=== PATIENT | female | born 1970 | race Caucasian/White ===

== ENCOUNTER 2019-12-05 09:08 | Emergency (ER) | payer OTHER ==
--- NOTE | 2019-12-05 09:26 | EDM.PDOC ---
ED HPI GENERAL MEDICAL PROBLEM - General Chief Complaint: Laceration Stated Complaint: HEAD LAC Time Seen by Provider: 12/05/19 09:25 - History of Present Illness INITIAL COMMENTS - FREE TEXT/NARRATIVE: 49-year-old female presents the emergency room with a laceration on her left forehead. This occurred roughly an hour ago. The patient was assisting her who was lowering their pickup camper. He was using a power drill to actuate the leveling jacks on a pull behind camper. As it was lowering the the battery pack on the drill struck her on the forehead. She had no loss of consciousness she felt a little dizzy for a few minutes afterwards but everything resolved without difficulty. She does not have a headache. She is uncertain as to when her last tetanus shot was. ED ROS GENERAL - Review of Systems Review Of Systems: See Below Constitutional: Reports: No Symptoms HEENT: Reports: No Symptoms Respiratory: Reports: No Symptoms Cardiovascular: Reports: No Symptoms GI/Abdominal: Reports: No Symptoms Neurological: Reports: No Symptoms ED EXAM, SKIN/RASH Exam: See Below Exam Limited By: No Limitations General Appearance: Alert, No Apparent Distress Eye Exam: Bilateral Eye: Normal Inspection, PERRL Ears: Normal External Exam, Normal Canal, Hearing Grossly Normal, Normal TMs Nose: Normal Inspection, Normal Mucosa, No Blood Throat/Mouth: Normal Inspection, Normal Lips, Normal Teeth, Normal Gums, Normal Oropharynx, Normal Voice, No Airway Compromise Head: Normocephalic, Other (Is atraumatic other than the 1 cm laceration in the left forehead) Neck: Normal Inspection, Supple, Non-Tender, Full Range of Motion. No: Lymphadenopathy (L), Lymphadenopathy (R), Tender Lateral, Tender Midline, Thyromegaly Respiratory/Chest: No Respiratory Distress, Lungs Clear, Normal Breath Sounds Cardiovascular: Regular Rate, Rhythm, No Edema, No Murmur ED SKIN PROCEDURES - Laceration/Wound Repair Left Face Appearance: Subcutaneous Anesthetic Type: Local Local Anesthesia - Lidocaine (Xylocaine): 1% with EPI Local Anesthetic Volume: 1cc Skin Prep: Saline Exploration/Debridement/Repair: Wound Explored, In a Bloodless Field, Explored to Base Closed with: Sutures Lac/Wound length In cm: 1 Suture Size: 4-0 # of Sutures: 3 Suture Type: Nylon Tetanus Status Addressed: Yes Complications: No Progress/Comments: The patient has a small left upper forehead laceration just below the hairline measures roughly 1 cm. Anesthesia was achieved with 1 cc of 1% lidocaine with epinephrine. The patient demonstrated adequate anesthesia 3 simple sutures were placed yielding good wound approximation. No complications. Course - Vital Signs Last Recorded V/S: Last Vital Signs Temp 36.5 C 12/05/19 09:19 Pulse 56 L 12/05/19 09:19 Resp 16 12/05/19 09:19 BP 132/89 12/05/19 09:19 Pulse Ox 100 12/05/19 09:19 - Orders/Labs/Meds Orders: Active Orders 24 hr Category Date Time Status Vaccines to be Administered [RC] PER UNIT ROUTINE Care 12/05/19 09:33 Ordered Meds: Medications Discontinued Medications Generic Name Dose Route Start Last Admin Trade Name Haroldo PRN Reason Stop Dose Admin Diphtheria/Tetanus/Acell Pertussis 0.5 ml 12/05/19 09:32 12/05/19 09:41 Adacel IM 12/05/19 09:33 0.5 ml .ONCE ONE Administration Lidocaine/Epinephrine 10 ml 12/05/19 09:32 12/05/19 09:48 Xylocaine 1% With Epinephrine 1:100,000 INJECT 12/05/19 09:33 10 ml ONETIME ONE Administration Departure - Departure Time of Disposition: 10:10 Disposition: Home, Self-Care 01 Clinical Impression: Head injury, Forehead laceration - Discharge Information Referrals: PCP,Not In Area [Primary Care Provider] - Forms: ED Department Discharge Additional Instructions: Return to the emergency room or the closest medical facility with any questions problems or unusual symptoms. Have a high index of suspicion for any unusual behavior or symptoms and seek medical attention if these develop. Keep the wound clean and dry for the next 48 hours. After this you may let water gently roll over the area but for no longer than absolutely necessary. Gently dab dry the area with stitches. Suture removal in 7 days. Sepsis Event Note (ED) - Evaluation Sepsis Screening Result: No Definite Risk - Focused Exam Vital Signs: Vital Signs Temp Pulse Resp BP Pulse Ox 12/05/19 09:19 36.5 C 56 L 16 132/89 100 - My Orders Last 24 Hours: My Active Orders 12/05/19 09:33 Vaccines to be Administered [RC] PER UNIT ROUTINE - Assessment/Plan Last 24 Hours: My Active Orders 12/05/19 09:33 Vaccines to be Administered [RC] PER UNIT ROUTINE
[2019-12-05] MEDS ORDERED: Lidocaine 1% with EPINEPHrine 1:100,000 10 ML MDV INJECT ONE (09:32)
[2019-12-05] MEDS ORDERED: Diphtheria,Pertussis(Acell),Tetanus Vaccine 0.5 ML Syringe IM ONE (09:32)
== END 2019-12-05 10:20 | disposition home or self-care (01) ==
LOC: JD.ED 09:08
DX: S01.81XA Laceration without foreign body of other part of head, initial encounter (principal); Z23 Encounter for immunization; W29.8XXA Contact with other powered hand tools and household machinery, initial encounter
CPT/HCPCS: 12011; 90471; 90715; 99282; 99282-25